=== PATIENT | male | born 1975 | race Caucasian/White ===

== ENCOUNTER 2017-01-26 00:56 | Emergency (ER) | payer OTHER ==
--- NOTE | ~2017-01-26 | CR281 ---
[facility] A Service [facility] RADIOLOGY TEXT RESULTS PATIENT: ROSEMARIE DAO LOCATION: SED : 75 UNIT #: [id number] AGE: [address]: Babak Alvarado MD SEX: M ORDER DR: [id number] [place] [id number] E MR#: [id number] #: [id number] NAME: ROSEMARIE DAO : 1975 SEX: M STUDY DATE/TIME: 01/26/2017 0:45 UNIT: SED ROOM: STUDY DESCRIPTION: CR Wrist Min 3 View Lt Attending Physician: Babak Alvarado M.D. Ordering Physician: Babak Alvarado M.D. Primary Care Physician: No Primary Care Physician MEDICAL IMAGING REPORT This report is preliminary unless electronic signature is present. EXAM Left wrist series, 01/26/2017. HISTORY 41-year-old male in the ED with wrist pain after injury. Dropped heavy object on wrist while working on a car tonight. TECHNIQUE Three-view left wrist series. FINDINGS No acute osseous abnormality is demonstrated. Old healed fracture of the midshaft fifth metacarpal. There is a tiny subcutaneous metallic foreign body along the volar aspect of the wrist in the region of the scaphoid. Remainder of the exam is negative. IMPRESSION 1. No acute osseous abnormality. 2. Tiny subcutaneous metallic foreign body as noted. 3. Old healed fifth metacarpal fracture. Dictated by... Alex Hooper M.D. THIS IS AN ELECTRONICALLY VERIFIED REPORT Alex Hooper M.D. at 01/30/2017 5:00 PM CASSIEW/gayatri TD: 01/26/2017 07:57 JOB #: [id number] MEDICAL IMAGING REPORT [facility] A Service [facility] RADIOLOGY TEXT RESULTS PATIENT: ROSEMARIE DAO LOCATION: SED : 75 UNIT #: [id number] AGE: [address]: Babak Alvarado MD SEX: M ORDER DR: Page 1 of 1
[~2017-01-26 00:56] MED LIST: BACTRIM DS TABL1 TA1 PO; METHADONE PO; MOTRIN600 M2 PO; NO MEDICATIONS; PEN-VEE K PO; VOLTAREN75 MG PO
== END 2017-01-26 01:38 | disposition home or self-care (01) ==
LOC: SED 00:56
DX: S60.212A Contusion of left wrist, initial encounter (principal); I10 Essential (primary) hypertension; F17.210 Nicotine dependence, cigarettes, uncomplicated; Z87.442 Personal history of urinary calculi; X58.XXXA Exposure to other specified factors, initial encounter; Y92.009 Unspecified place in unspecified non-institutional (private) residence as the place of occurrence of the external cause
CPT/HCPCS: 29125; 73110; 96372; 99283; J1170